=== PATIENT | female | born 1950 | race Caucasian/White ===

== ENCOUNTER → 2016-08-19 | Outpatient (CLI) | payer BC, OTHER | LOC: GMAL 10:26 | PROVIDERS: ATTEND Family Medicine | DX: E55.9 Vitamin D deficiency, unspecified (principal) ==

== ENCOUNTER → 2017-08-23 | Outpatient (CLI) | payer MEDICARE, OTHER | LOC: GMAL 11:33 | PROVIDERS: ATTEND Family Medicine | DX: D51.3 Other dietary vitamin B12 deficiency anemia (principal); E55.9 Vitamin D deficiency, unspecified ==

== ENCOUNTER → 2018-02-20 | Outpatient (CLI) | payer MEDICARE, OTHER | LOC: GMAL 12:03 | PROVIDERS: ATTEND Family Medicine | DX: E55.9 Vitamin D deficiency, unspecified (principal) ==

== ENCOUNTER → 2018-12-25 | Outpatient (CLI) | payer MEDICARE, OTHER | LOC: GMAL 11:07 → EDSTATUS 15:20 | PROVIDERS: ATTEND Family Medicine | DX: D51.3 Other dietary vitamin B12 deficiency anemia (principal); I10 Essential (primary) hypertension; E11.9 Type 2 diabetes mellitus without complications; E78.49 Other hyperlipidemia ==

== ENCOUNTER 2019-06-11 00:02 | Emergency (ER) | payer MEDICARE, OTHER ==
[2019-06-11 00:19] VITALS: TEMP 99.7
[2019-06-11] MEDS ORDERED: diazePAM INJ 10 MG/2 ML SYG IM ONE (00:20)
[2019-06-11] MEDS ORDERED: MORPHINE SULFATE INJ 10 MG/ML VIAL IM ONE (00:20)
--- NOTE | 2019-06-11 00:54 | RAD ---
LUMBAR SPINE, [3] VIEWS. CLINICAL HISTORY: Pain. COMPARISON: CT abdomen and pelvis 06/06/2007. TECHNIQUE: AP, lateral, and spot views of the lumbar spine. FINDINGS: Normal lumbar lordosis. There is mild degenerative anterior subluxation of L4 on L5 of 4 mm. There are mild hypertrophic endplate changes throughout the lumbar spine. There are five nonrib-bearing lumbar vertebrae segments. No vertebral body compression fracture. Pedicles appear intact. Included portions of the bony pelvis appear normal. There are vascular calcifications within the abdominal aorta. Right upper quadrant cholecystectomy clips are present. Bowel gas pattern within the abdomen appears normal. IMPRESSION: 1. Mild lumbar spondylosis. No acute finding. Electronically signed by: Tahira Bunch DO 06/11/2019 12:52 AM [employer]
[2019-06-11 01:03] VITALS: BP 173/88; O2SAT 96
--- NOTE | 2019-06-11 01:05 | ED.PDOC ---
History of Present Illness - General Chief Complaint: Back Pain or Injury Stated Complaint: back pain Time Seen by Provider: 06/11/19 00:19 - History of Present Illness Initial Comments: c/o having back pain since 2 weeks : getting worse for 2 days , no numbness or tingling sensation , no fever or chills Timing/Duration: getting worse Quality/Severity: moderate Back Pain Location: lumbar spine Back Pain Radiation: buttocks Improving Factors: nothing Worsening Factors: nothing Associated Symptoms: denies symptoms Allergies/Adverse Reactions: Allergies NO KNOWN ALLERGY Allergy (Verified 06/11/19 00:17) Home Medications: Ambulatory Orders Baclofen 20 mg PO TID #12 tab 06/11/19 Review of Systems - Review of Systems Constitutional: States: no symptoms reported EENTM: States: no symptoms reported Respiratory: States: no symptoms reported Cardiology: States: no symptoms reported Gastrointestinal/Abdominal: States: no symptoms reported Genitourinary: States: no symptoms reported Musculoskeletal: States: no symptoms reported Skin: States: no symptoms reported Neurological: States: no symptoms reported Endocrine: States: no symptoms reported Hematologic/Lymphatic: States: no symptoms reported Past Medical History (General) - Patient Medical History Hx Hypertension: Yes Hx Diabetes: Yes Surgical History: appendectomy, cholecystectomy, Hysterectomy - Vaccination History Hx Influenza Vaccination: No Family Medical History - Family History Father Family History: Unknown Physical Exam - Physical Exam General Appearance: Alert, Comfortable Eyes, Ears, Nose, Throat Exam: PERRL/EOMI Neck Exam: non-tender, full range of motion, normal alignment, normal inspection Back Exam: vertebral tenderness - lower spine Extremity Exam: no evidence of injury, normal range of motion, non-tender Neurologic: therapist phys II-XII nml as tested, no motor/sensory deficits, alert, normal mood/affect, oriented x 3 Skin Exam: normal color, warm/dry Departure - Departure Clinical Impression: Back ache Time of Disposition: 01:05 Disposition: Discharge to Home or Self Care Departure Forms: ED Discharge - Pt. Copy, Patient Portal Self Enrollment Instructions: DI for Low Back Pain Diet: resume usual diet Activity: increase activity as tolerated, walking as tolerated Referrals: Dhruv Fernandez III, MD [Primary Care Provider] - 1-2 Weeks Prescriptions: Baclofen 20 mg PO TID #12 tab Home Medications: Ambulatory Orders Baclofen 20 mg PO TID #12 tab 06/11/19 Additional Instructions: Follow up with pain clinic
== END 2019-06-11 01:15 | disposition home or self-care (01) ==
LOC: ER 00:02
DX: M54.5 Low back pain (principal); I10 Essential (primary) hypertension; E11.9 Type 2 diabetes mellitus without complications; Z90.49 Acquired absence of other specified parts of digestive tract
CPT/HCPCS: 72100; J2270; J3360

== ENCOUNTER → 2019-09-21 | Outpatient (CLI) | payer MEDICARE, OTHER | LOC: GMAL 11:30 | PROVIDERS: ATTEND Family Medicine | DX: R53.83 Other fatigue (principal); I10 Essential (primary) hypertension; E11.9 Type 2 diabetes mellitus without complications; E78.49 Other hyperlipidemia ==

== ENCOUNTER → 2019-10-12 | Outpatient (CLI) | payer MEDICARE, OTHER ==
--- NOTE | 2019-10-15 10:05 | CT ---
EXAM DESCRIPTION: Chest w/o Contrast : Computed Tomography. CLINICAL HISTORY: 69 years Female MULTIPLE NODULE OF LUNG COMPARISON: CT scan of the lungs June 15. TECHNIQUE: Spiral-axial scans at 5 x 5 mm intervals through the lungs and thorax without IV contrast. 2.5 x 5 mm lung algorithm axial reconstructions. Coronal and sagittal 2.0 mm Mm reconstructions. Total Exam DLP: 566 mGy-cm. This exam was performed according to our departmental dose-optimization program which includes automated exposure control, adjustment of the mA and/or kV according to patient size and/or use of iterative reconstruction technique; to reduce radiation dose to as low as reasonably achievable (ALARA). Nodule measurements under 10 mm are given as mean value of 3 axes diameters. FINDINGS: Lungs and large airways: 3 mm nodule in the posterior recess of the left lower lobe on axial series 4, image 98 has decreased in size from a pleural parenchymal nodule on the prior study. 2 mm subpleural nodule on image 4/71 is stable. Stable scarring in the inferior lingula. Stable 4 mm nodule left lower lobe on image 4/76. Decreased pleural parenchymal scarring in the left lower lobe. Stable 3 to 4 mm nodules in the superior segment of the left lower lobe on images 4/59, 4/56 and 4/77. Stable solid nodule 4.9 mm right middle lobe abutting the inferior right major fissure on image 4/70. Stable 6.1 mm nodule medial right middle lobe on same image. Stable 7 mm nodule in the base of the right middle lobe abutting the horizontal fissure on image 4/63. No interval change right upper lobe subpleural nodule 3.5 mm on image 4/42. No change in 3.9 mm solid nodule in the base of the right upper lobe on image 4/60. Stable 4 mm perifissural nodule lateral right middle lobe on image 4/74. 4 mm solid subpleural nodule medial right upper lobe no interval change on image 4/73. Stable nodule more lateral on the same. No change in 8.7 mm solid nodule in the right lower lobe above the right hemidiaphragm on image 4/81. Stable 3 mm subpleural nodules lateral recess right lower lobe on images 4/85 and 4/91 and 4/93. No change in 3 mm solid nodules subpleural inferior lingula on image 4/65 and 4/67. No new abnormal nodules and no masses. No focal infiltrates. Pleural spaces: Negative. Mediastinum and Hoda: Evaluation limited due to lack of IV contrast no abnormal nodules and no focal masses. Great vessels and Heart: Evaluation limited due to lack of IV contrast. 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 No dissection. Atherosclerotic calcification in the aorta, the brachiocephalic vessels, and the coronary arteries. Soft tissues of neck base, axillae, and chest wall: Evaluation limited due to lack of IV contrast. Unremarkable. Upper abdomen: Calcification left renal artery. Surgical clips gallbladder fossa with no fluid. No free air or free fluid in the included peritoneal space. Osseous structures: Spondylosis thoracic spine. Bilateral sternoclavicular arthrosis. No change. IMPRESSION: 1. Multiple nodules bilateral lungs ranging in size from 2 mm to 8.7 mm bilaterally. No new nodules since the prior study. No mass. No new infiltrate. Consider follow-up chest CT scan in 6-12 month interval, followed by follow-up in 12-18 month interval, then at 18-24 month interval. 2. Stable ectasia proximal ascending aortic arch. No enlarging heart size or pulmonary vascularity. Electronically signed by: Néstor Wilkerson MD 10/15/2019 10:03 AM CDT
== END ==
LOC: CT 13:30
PROVIDERS: ATTEND Internal Medicine
DX: R91.8 Other nonspecific abnormal finding of lung field (principal); I77.810 Thoracic aortic ectasia